=== PATIENT | male | born 1985 | race Hispanic/Latino ===

== ENCOUNTER 2024-11-14 19:07 | Emergency (ER) | payer SELFPAY ==
[~2024-11-14] VITALS: Ht 175.3 cm; Wt 128.8 kg
[2024-11-14] MEDS ORDERED: IOPAMIDOL 370 MG/ML 100 ML INFUS..BTL INJ ONE (20:21)
[2024-11-14] MEDS ORDERED: TAMIFLU75 MG PO (21:51)
[2024-11-14] MEDS ORDERED: ONDANSETRON ODT4 MG PO (21:53)
[2024-11-14] MEDS ORDERED: BENZONATATE200 MG PO (21:55)
[2024-11-14 22:12] VITALS: PULSE 98; RESP 18; TEMP 98.6
[2024-11-14] MEDS: KETOROLAC TROMETHAMINE 30 MG/ML VIAL IV STA (22:15)
[2024-11-14 23:06] VITALS: BP 159/72; PULSE 76; RESP 18; TEMP 98.2; O2SAT 99
== END 2024-11-14 23:06 | disposition home or self-care (01) ==
LOC: FSED 19:37
DX: K60.30 Anal fistula, unspecified (principal); K76.0 Fatty (change of) liver, not elsewhere classified; R16.0 Hepatomegaly, not elsewhere classified; F17.290 Nicotine dependence, other tobacco product, uncomplicated
CPT/HCPCS: 74177; 80048; 85025; 96374; 99283; J1885; Q9967